=== PATIENT | female | born 1950 | race Caucasian/White ===

== ENCOUNTER 2019-08-01 10:54 | Emergency (ER) | payer OTHER ==
[~2019-08-01] VITALS: Ht 149.9 cm; Wt 71.7 kg
[2019-08-01 10:59] VITALS: BP 134/80
--- NOTE | 2019-08-01 11:12 | NUR ---
68 y/o F presents to ER c/o cough, fever, dizziness and nausea x 4 days. Pt currently afebrile. Pt took tylenol last night. Pt c/o generalized body aches. Pain level 6/10. A&O x4. HOB elevated, bed in lowest position, bed rail up x1. Waiting for ERMD to evaluate pt. Allergies: NKA Med hx: brain tumor, HTN
[2019-08-01] MEDS ORDERED: KETOROLAC 15 MG/ML VIAL IVP ONE (11:20)
[2019-08-01] MEDS ORDERED: NACL 0.9% 1,000 ML IV ONE (11:20)
--- NOTE | 2019-08-01 11:23 | NUR ---
xray at bedside
--- NOTE | 2019-08-01 11:27 | NUR ---
Juan José aguilar in [facility] - 08/01/19 at 1127 by LORENA xray at bedside
--- NOTE | 2019-08-01 11:43 | NUR ---
Influenza swab collected and sent to lab
--- NOTE | 2019-08-01 11:50 | NUR ---
Lab at bedside
[2019-08-01 12:00] LABS: BASOPHILS % (AUTO) 0.5 % (0.0-2.0); EOSINOPHILS % (AUTO) 0.2 % (0.0-4.0); HEMATOCRIT 43.9 % (36-48); HEMOGLOBIN 14.2 g/dL (12.0-16.0); LYMPHOCYTES # (AUTO) 1.5 K/uL (2.5-16.5); LYMPHOCYTES % (AUTO) 30.9 % (20.5-51.1); MEAN CORPUSCULAR HEMOGLOBIN 28 pg (27-31); MEAN CORPUSCULAR HGB CONC 32 g/dL (33-37); MEAN CORPUSCULAR VOLUME 85.8 fL (80-94); MONOCYTES # (AUTO) 0.8 K/uL (0.8-1.0); MONOCYTES % (AUTO) 17.1 % (1.7-9.3); NEUTROPHILS # (AUTO) 2.5 K/uL (1.8-7.7); NEUTROPHILS % (AUTO) 51.3 % (42.2-75.2); PLATELET COUNT (AUTO) 163 K/uL (140-450); RED BLOOD CELL COUNT(AUTO) 5.12 MIL/uL (4.20-5.40); RED CELL DISTRIBUTION WIDTH 13.2 % (11.6-13.7); WHITE BLOOD COUNT (AUTO) 4.8 K/uL (4.8-10.8)
[2019-08-01 12:13] LABS: ALBUMIN 3.1 g/dL (3.4-5.0); ANION GAP 9.4 (8-16); CARBON DIOXIDE 30.7 mmol/L (21-32); POTASSIUM 4.1 mmol/L (3.5-5.1); TOTAL BILIRUBIN 0.3 mg/dL (0.0-1.0)
[2019-08-01] MEDS ORDERED: ACETAMINOPHEN 325 MG TAB PO ONE (12:15)
[2019-08-01] MEDS ORDERED: traMADol 50 MG TAB PO ONE (12:15)
[2019-08-01 12:52] VITALS: BP 124/68
--- NOTE | 2019-08-01 12:52 | NUR ---
Patient discharged with v/s stable. Written and verbal after care instructions given and explained. Patient alert, oriented and verbalized understanding of instructions. Ambulatory with steady gait. All questions addressed prior to discharge. ID band removed. Patient advised to follow up with PMD. Rx of Tramadol Hydrochloride 50 mg was given. Patient educated on indication of medication including possible reaction and side effects. Opportunity to ask questions provided and answered.
== END 2019-08-01 12:52 | disposition home or self-care (01) ==
LOC: MED 10:54
DX: J10.1 Influenza due to other identified influenza virus with other respiratory manifestations (principal); J45.909 Unspecified asthma, uncomplicated; I10 Essential (primary) hypertension
CPT/HCPCS: 36415; 71045; 80053; 85025; 87804; 96374; 99284; J1885; Q0092; J7030

== ENCOUNTER 2020-03-14 20:22 | Emergency (ER) | payer MEDICARE, OTHER ==
[~2020-03-14] VITALS: Ht 149.9 cm; Wt 73.9 kg
[2020-03-14 20:25] VITALS: BP 172/95
[2020-03-14] MEDS ORDERED: IBUPROFEN 400 MG TAB PO STA (21:25)
[2020-03-14] MEDS ORDERED: CYCLOBENZAPRINE 10 MG TAB PO STA (21:25)
[2020-03-15 01:04] VITALS: BP 110/61
== END 2020-03-15 01:04 | disposition home or self-care (01) ==
LOC: MED 20:22
DX: M54.9 Dorsalgia, unspecified (principal); M25.552 Pain in left hip; H02.401 Unspecified ptosis of right eyelid; J45.909 Unspecified asthma, uncomplicated; I10 Essential (primary) hypertension
CPT/HCPCS: 70450; 99284